=== PATIENT | female | born 1990 | race Two or more races ===

== ENCOUNTER 2017-11-08 11:08 | Emergency (ER) | payer SELFPAY ==
[2017-11-08 11:18] VITALS: TEMP 98.4; BMI 20.9
--- NOTE | 2017-11-08 15:03 | PDOC ---
History of Present Illness - General Chief Complaint: Vaginal Bleeding Stated Complaint: VAGINAL BLEED (POSS ) Time Seen by Provider: 11/08/17 14:56 Past History - Past Medical History Allergies/Adverse Reactions: Allergies Allergy/AdvReac Type Severity Reaction Status Date / Time No Known Allergies Allergy Verified 11/08/17 11:17 Home Medications: Ambulatory Orders Ibuprofen [Motrin -] 800 mg PO Q6H #30 tablet 07/17/16 CVA: No COPD: No - Suicide/Smoking/Psychosocial Hx Smoking History: Never smoked Hx Alcohol Use: Yes (SOCIAL) Drug/Substance Use Hx: No Substance Use Type: None *Physical Exam - Vital Signs Last Vital Signs Temp Pulse Resp BP Pulse Ox 98.4 F 75 20 120/62 99 11/08/17 11:15 11/08/17 11:15 11/08/17 11:15 11/08/17 11:15 11/08/17 11:15 ED Treatment Course - LABORATORY CBC & Chemistry Diagram: 11/08/17 16:05 11/08/17 16:05 *DC/Admit/Observation/Transfer Diagnosis at time of Disposition: Menses painful - Discharge Dispostion Disposition: HOME Condition at time of disposition: Good Admit: No - Referrals Referrals: Ayana Hines DO [Staff Physician] - - Patient Instructions Printed Discharge Instructions: DI for Dysmenorrhea Additional Instructions: your test was negative today. You are on your menstrual cycle. Please keep your [facility] appointment tomorrow. Your lab work and urine analysis was normal. Drink plenty of fluids. You may take ibuprofen as needed for pain. Return to the ED if you have worsening pain, fevers, excessive bleeding, or have any changes in your symptoms. - Post Discharge Activity Forms/Work/School Notes: Back to Work
[2017-11-08] MEDS ORDERED: ACETAMINOPHEN 325 MG TABLET (FP) PO ONE (16:16)
[2017-11-08 16:19] LABS: BASO % 0.7 % (0-2.0); HEMATOCRIT 37.4 % (32.4-45.2); HEMOGLOBIN 12.4 GM/dL (10.7-15.3); MCH 29.3 pg (25.7-33.7); MEAN CELL VOLUME 88.6 fl (80-96); MEAN PLT VOLUME 8.7 fl (7.5-11.1); MONO % 10.6 % (3.8-10.2); NEUT % 48.7 % (42.8-82.8); PLATELET COUNT 315 K/MM3 (134-434); RBC 4.22 M/mm3 (3.60-5.2); RDW 12.2 % (11.6-15.6); WHITE BLOOD COUNT 4.8 K/mm3 (4.0-10.0)
[2017-11-08] MEDS ORDERED: ACETAMINOPHEN 325 MG TABLET (FP) ONE (16:34)
[2017-11-08 16:44] LABS: ALBUMIN 4.4 g/dl (3.4-5.0); ANION GAP 5 (8-16); BILIRUBIN,TOTAL 0.4 mg/dL (0.2-1.0); BLOOD UREA NITROGEN 10 mg/dL (7-18); CALCIUM 9.3 mg/dL (8.5-10.1); CHLORIDE 106 mmol/L (98-107); CO2 30 mmol/L (21-32); CREATININE 0.7 mg/dL (0.55-1.02); GLUCOSE,RANDOM 88 mg/dL (74-106); POTASSIUM 4.3 mmol/L (3.5-5.1); SGOT/AST 18 U/L (15-37); SGPT/ALT 17 U/L (12-78); SODIUM 141 mmol/L (136-145); TOT PROT 7.7 g/dl (6.4-8.2)
[2017-11-08 16:47] LABS: ALK PHOS 52 U/L (45-117)
[2017-11-08 17:01] LABS: URINE APPEARANCE CLEAR; URINE BILIRUBIN NEGATIVE (NEGATIVE); URINE BLOOD 3+ (NEGATIVE); URINE COLOR LTYELLOW; URINE GLUCOSE (UA) NEGATIVE (NEGATIVE); URINE KETONE NEGATIVE (NEGATIVE); URINE LEUK ESTERASE NEGATIVE (NEGATIVE); URINE NITRITE NEGATIVE (NEGATIVE); URINE PROTEIN NEGATIVE (NEGATIVE); URINE UROBILINOGEN NEGATIVE mg/dL (0.2-1.0)
[2017-11-08 17:14] LABS: EPI CELLS RARE /HPF (FEW); URINE MUCUS RARE
[2017-11-08 17:28] VITALS: BP 118/64; PULSE 65
== END 2017-11-08 17:28 | disposition home or self-care (01) ==
LOC: JER 11:08
DX: N94.6 Dysmenorrhea, unspecified (principal)
CPT/HCPCS: 36415; 80053; 81003; 81015; 84702; 85025; 86850; 86900; 86901; 87086; 99282-25